=== PATIENT | male | born 1995 | race Caucasian/White ===

== ENCOUNTER 2018-06-16 15:19 | Outpatient (CLI) | payer OTHER ==
--- NOTE | 2018-06-16 16:03 | CT ---
FExam: Lumbar spine CT without contrast HISTORY: Back injury at age 14. Low back pain, x1 month. Evaluate for pars defects. COMPARISON: None FINDINGS: No retroperitoneal/paraspinal mass, lymphadenopathy or hematoma. Symmetric attenuation of t he psoas muscles Visualized alimentary canal and solid organs are grossly unremarkable 5 lumbar type vertebral bodies. Lumbar spine vertebral body height is maintained. No fracture. No spo ndylolisthesis. No spondylolysis. Limited evaluation of the contents of the central spinal canal and neural foramina due to technique T12-L1: No significant central canal stenosis or foraminal narrowing L1-L2: No significant canal stenosis or foraminal narrowing L2-L3: No significant central canal stenosis or foraminal narrowing L3-L4: Generalized disc bulge with mild central canal stenosis. Neural foramina are patent L4-L5: Generalized disc bulge with minimal central canal stenosis. Neural foramina are patent. L5-S1: Generalized disc bulge without significant central canal stenosis or neural foraminal narrowin g IMPRESSION: 1. No evidence of pars defects. No spondylolisthesis or spondylolysis. 2. No significant central canal stenosis or neural foraminal narrowing.
== END 2018-06-16 15:20 | disposition home or self-care (01) ==
LOC: BICCT 15:19
PROVIDERS: ATTEND Orthopaedic Surgery
DX: M43.06 Spondylolysis, lumbar region (principal)
CPT/HCPCS: 72131